=== PATIENT | male | born 1940 | race African-American/Black ===

== ENCOUNTER → 2019-10-19 | Outpatient (CLI) | payer OTHER, MEDICARE | LOC: SJCVC 15:46 | DX: I10 Essential (primary) hypertension (principal); R06.02 Shortness of breath; R09.89 Other specified symptoms and signs involving the circulatory and respiratory systems; R93.1 Abnormal findings on diagnostic imaging of heart and coronary circulation; Z87.891 Personal history of nicotine dependence; Z79.899 Other long term (current) drug therapy ==

== ENCOUNTER → 2019-12-09 | Outpatient (CLI) | payer OTHER, MEDICARE | LOC: SJCVCIMAG 09:33 | DX: I36.1 Nonrheumatic tricuspid (valve) insufficiency (principal); I65.23 Occlusion and stenosis of bilateral carotid arteries; I11.9 Hypertensive heart disease without heart failure ==

== ENCOUNTER → 2019-12-12 | Outpatient (CLI) | payer OTHER, MEDICARE | LOC: SJCVC 10:03 | DX: I10 Essential (primary) hypertension (principal); I65.23 Occlusion and stenosis of bilateral carotid arteries; E78.00 Pure hypercholesterolemia, unspecified; R60.9 Edema, unspecified; Z87.891 Personal history of nicotine dependence; Z72.89 Other problems related to lifestyle; Z79.899 Other long term (current) drug therapy ==

== ENCOUNTER → 2020-07-18 | Outpatient (CLI) | payer OTHER, MEDICARE | LOC: SJCVC 10:32 | PROVIDERS: ATTEND Internal Medicine Cardiovascular Disease | DX: I10 Essential (primary) hypertension (principal); E78.00 Pure hypercholesterolemia, unspecified; R93.1 Abnormal findings on diagnostic imaging of heart and coronary circulation; R60.9 Edema, unspecified; I77.9 Disorder of arteries and arterioles, unspecified; E78.5 Hyperlipidemia, unspecified ==

== ENCOUNTER → 2020-12-12 | Outpatient (CLI) | payer OTHER, MEDICARE ==
[~2020-12-12] VITALS: Ht 177.8 cm; Wt 90.7 kg
[~2020-12-12] MED LIST: ADULT ASPIRIN R81 MG PO; ALLEGRA ALLERGY60 MG PO; AMBIEN 10 MG TA10 MG PO; EDARBI80 MG PO; HUMALOG MI100 UNIT/1 SUBQ; LASIX 40 MG TAB40 MG PO; MELOXICAM15 MG PO; NEURONTIN300 MG PO; NORVASC5 M1 PO; PERCOCET 5-3251 EACH PO; SUPER THERAVIT1 EACH PO; TRAMADOL 50 MG50 MG PO; ZANAFLEX4 M1 PO; ZOCOR 20 MG TAB20 M1 PO; ZOLPIDEM TARTRA10 MG PO
[2020-12-12 13:08] VITALS: BP 168/71
--- NOTE | 2020-12-12 13:28 | NUR ---
Pain Clinic Assessment: 1. History of Osteoarthritis: RIGHT HIP History of Rheumatoid Arthritis: Not Applicable 2. Height: 5 ft. 10 in. 177.8 cm. Weight: 200.0 lb. oz. 90.720 kg. Patient's BMI: 28.7 3. Vital Signs: BP: 168/71 Pulse: 62 Resp: 16 Temp: 02 Sat: 100 ECG Mon: 4. Pain Intensity: 8 TO 10 5. Fall Risk: Dizziness: N Needs help standing or walking: N Fallen in the last 3 months: N Fall risk comments: 6. Patient on Blood Thinner: None 7. History of Hypertension: Y 8. Opioid Therapy greater than 6 weeks: N Opiate Contract Signed: 9. Risk Assessment Tool Provided: LOW-0 10. Functional Assessment Tool: 57/ 11. Recreational Drug Use: Never Drug Type: Tobacco Use: Former Smoker Tobacco Type: Amount or Packs/day: How Many Years: Alcohol Use: Yes Frequency: Special Occasions Quant: 2
== END ==
LOC: PAIN 10:08
PROVIDERS: ATTEND Anesthesiology Pain Medicine
DX: M54.5 Low back pain (principal)

== ENCOUNTER → 2021-01-09 | Outpatient (CLI) | payer OTHER, MEDICARE ==
[~2021-01-09] VITALS: Ht 177.8 cm; Wt 90.3 kg
[2021-01-09 10:32] VITALS: BP 134/88
--- NOTE | 2021-01-09 10:34 | NUR ---
Pain Clinic Assessment: 1. History of Osteoarthritis: RIGHT HIP History of Rheumatoid Arthritis: Not Applicable 2. Height: 5 ft. 10 in. 177.8 cm. Weight: 199.0 lb. oz. 90.266 kg. Patient's BMI: 28.6 3. Vital Signs: BP: 134/88 Pulse: 58 Resp: 16 Temp: 02 Sat: 99 ECG Mon: 4. Pain Intensity: 2 5. Fall Risk: Dizziness: N Needs help standing or walking: N Fallen in the last 3 months: N Fall risk comments: 6. Patient on Blood Thinner: None 7. History of Hypertension: Y 8. Opioid Therapy greater than 6 weeks: N Opiate Contract Signed: 9. Risk Assessment Tool Provided: LOW-0 10. Functional Assessment Tool: 57/70 11. Recreational Drug Use: Never Drug Type: Tobacco Use: Former Smoker Tobacco Type: Amount or Packs/day: How Many Years: Alcohol Use: Yes Frequency: Daily Quant: 2
--- NOTE | 2021-01-10 09:03 | HPC ---
[facility] [address] [place] [address] PAIN MANAGEMENT CONSULTATION Name: RAND QUINTERO [id number] Admission: 01/09/21 Attend Phys: Marcelle Valencia Discharge: Date of : 40 Report #: [id number] THIS REPORT FOR: cc: Carlotta Moulton MD, Karla L. MD Hocker,Marcelle YADAV ~ DATE OF SERVICE: 01/09/2021 CHIEF COMPLAINT: Lumbar radiculopathy and sciatic pain. HISTORY OF PRESENT ILLNESS: This is a very pleasant 80-year-old gentleman who returns to the pain clinic today for followup from his initial consultation. Today, the patient is rating his pain a 2/10, feels that the tramadol as well as a combination of gabapentin and tizanidine has been beneficial in decreasing his pain that he experiences in his low back that radiates down his right hip into his posterior thigh down to his foot. He describes it as a constant, aching with times of sharp, shooting pain. Overall, he believes the medication has been helpful in decreasing this pain. He reports becoming slightly "oozy sensation" when he took three tramadol a day and has now decreased that to 1 in the morning and 1 at night. He continues to take gabapentin twice a day and tizanidine up to 3 times a day. He denies any difficulty walking or "woozy sensation" with gabapentin or tizanidine. Today, he would like a refill of the tramadol. He is now having his primary care doctor write his gabapentin and tizanidine and he would also like to schedule a lumbar epidural steroid injection that Dr. Little discussed with him at his initial visit. The patient reports his second COVID vaccine was on 01/04/2021. He did not feel well the second day after the injection, now recovered. He is aware that he needs to schedule his epidural injection 2 weeks post-COVID vaccine. ALLERGIES: No known drug allergies. CURRENT LIST OF MEDICATIONS: Tizanidine 4 mg t.i.d., gabapentin 300 mg b.i.d., Tramadol 50 mg b.i.d., Percocet, Edarbi, Zocor, Palak, aspirin, Lasix, Norvasc, multivitamin, Humalog 70/25, Ambien p.r.n. and meloxicam. PQRS: 1. He has arthritic changes in his back as well as his right hip. Denies any rheumatoid arthritis. 2. Height is 5 feet 10 inches, weight is 199, BMI is 28. 3. Vital signs 134/88, pulse is 58, respirations 16, oxygen sat is 99. 4. Pain score is 2/10. 5. Denies dizziness, does not need help walking or standing, has not fallen in the last 3 months. 6. The patient is not on any blood thinners, but [place] [address] PAIN MANAGEMENT CONSULTATION Name: RAND QUINTERO Room #: REG [facility] Houser#: [id number] Admission: 01/09/21 Attend Phys: Marcelle Valencia Discharge: Date of : 40 Report #: [id number] 7. Opioid therapy is not greater than 6 weeks. 8. Risk assessment is low. Functional assessment is 57/70. 9. Recreational drug use, he denies. He is a former smoker and occasionally drinks alcohol. According to the prescription monitoring system, he did fill our tramadol as well as oxycodone and is due to fill those again this week. He reports not taking any oxycodone thankfully, it was not needed. PHYSICAL EXAMINATION: GENERAL: This is alert and orientated, well-developed, well-nourished 80-year-old gentleman who appears his stated age, rating his pain score today at 2/10. He is a good historian. HEENT: Normocephalic, atraumatic. Extraocular eye muscles are intact. Sclerae are nonintrinsic. He is wearing a mask. NECK: Without adenopathy or JVD. MUSCULOSKELETAL: The patient's upper and lower extremity strength are symmetrical at 5/5 with good sensation from L1 to S2. He does have pain that radiates from the lumbosacral region down the right buttock down the posterior portion of his right thigh into his L5-S1 dermatomal distribution to his ankle. The patient is without significant scoliosis, kyphosis or lordosis. IMPRESSION: 1. Lumbar radiculopathy following the L5-S1 dermatomal distribution. 2. Opioid medication management utilizing scheduled medications. 3. Neuropathic pain. PLAN: 1. We discussed treatment options with the patient today. The patient finds the tramadol beneficial in helping control his pain. He would like to continue on this medication until he is able to have a lumbar epidural steroid injection. Though this medication regimen that we have prescribed for him with adjunct medication has been beneficial, he would like to attempt to have the epidural to see if that will decrease his pain requiring him to have less medications. We will schedule him for injection on 01/23/2021, 2 weeks post-COVID vaccine with Dr. Little. 2. The patient was able to attend his granddaughter's wedding without difficulty. He did not require any oxycodone and has that locked up in a safe place and found the tramadol [address] Zack Little will send electronically a refill of that medication today for 60 tablets. He will discuss any further refills at his injection appointment in [address] Moulton has taken over writing the gabapentin and tizanidine. I did encourage the patient to take the lowest most effective dose of his tizanidine, it may cause slight dizziness, which he did complain of oozy sensation, he related it to the tramadol, it could be from the tizanidine or gabapentin. The patient verbalizes understanding. He will try to decrease [facility] [address] [place] [address] PAIN MANAGEMENT CONSULTATION Name: RAND QUINTERO [facility]: [facility]ott.#: [id number] Admission: 01/09/21 Attend Phys: Marcelle Valencia Discharge: Date of : 40 Report #: [id number] that if he is able without causing increase in muscle spasms. Time spent with the patient in consultation, reviewing clinical notes and physician reports as well as physical examination in correlation of findings, 15 minutes. Time spent in preparation for appointment reviewing prescription monitoring system reviewed previous records and treatment options and reviewing current medications, 5 minutes. Time spent in preparation and sending electronic prescriptions with collaborating physician and documentation of visit and plan of care, 9 minutes. Total time spent 27 minutes. <ELECTRONICALLY SIGNED> By: Marcelle Valencia 01/10/21 [id number] Marcelle oneill
== END ==
LOC: PAIN 06:54
PROVIDERS: ATTEND Clinical Nurse Specialist Adult Health
DX: M54.16 Radiculopathy, lumbar region (principal); G62.9 Polyneuropathy, unspecified; F11.20 Opioid dependence, uncomplicated; M54.30 Sciatica, unspecified side

== ENCOUNTER → 2021-01-23 | Outpatient (CLI) | payer OTHER, MEDICARE ==
[~2021-01-23] VITALS: Ht 177.8 cm; Wt 91.4 kg
[~2021-01-23] MED LIST changes: +MEDROLDOSEPACK PO
[2021-01-23 12:42] VITALS: BP 158/74
--- NOTE | 2021-01-23 12:47 | NUR ---
Pain Clinic Assessment: 1. History of Osteoarthritis: RIGHT HIP History of Rheumatoid Arthritis: Not Applicable 2. Height: 5 ft. 10 in. 177.8 cm. Weight: 201.4 lb. oz. 91.355 kg. Patient's BMI: 28.9 3. Vital Signs: BP: 158/74 Pulse: 64 Resp: 16 Temp: 02 Sat: 100 ECG Mon: 4. Pain Intensity: 1 5. Fall Risk: Dizziness: N Needs help standing or walking: N Fallen in the last 3 months: N Fall risk comments: 6. Patient on Blood Thinner: None 7. History of Hypertension: Y 8. Opioid Therapy greater than 6 weeks: N Opiate Contract Signed: 9. Risk Assessment Tool Provided: LOW-0 10. Functional Assessment Tool: 57/70 11. Recreational Drug Use: Never Drug Type: Tobacco Use: Former Smoker Tobacco Type: Amount or Packs/day: How Many Years: Alcohol Use: Yes Frequency: Daily Quant: 2
== END ==
LOC: PAIN 09:42
PROVIDERS: ATTEND Anesthesiology Pain Medicine
DX: M54.16 Radiculopathy, lumbar region (principal); M54.41 Lumbago with sciatica, right side; G62.9 Polyneuropathy, unspecified; I10 Essential (primary) hypertension; M16.11 Unilateral primary osteoarthritis, right hip; F11.20 Opioid dependence, uncomplicated

== ENCOUNTER → 2021-01-23 | Outpatient (CLI) | payer OTHER, MEDICARE | LOC: SJCVCIMAG | PROVIDERS: ATTEND Internal Medicine Cardiovascular Disease | DX: I07.1 Rheumatic tricuspid insufficiency (principal); I27.20 Pulmonary hypertension, unspecified; I11.9 Hypertensive heart disease without heart failure; R93.1 Abnormal findings on diagnostic imaging of heart and coronary circulation; E11.9 Type 2 diabetes mellitus without complications; E78.00 Pure hypercholesterolemia, unspecified; I77.9 Disorder of arteries and arterioles, unspecified; Z79.4 Long term (current) use of insulin; Z79.82 Long term (current) use of aspirin; Z79.899 Other long term (current) drug therapy; Z87.891 Personal history of nicotine dependence ==

== ENCOUNTER → 2021-11-06 | Outpatient (CLI) | payer OTHER, MEDICARE | LOC: SJCVC 13:03 | PROVIDERS: ATTEND Internal Medicine Cardiovascular Disease | DX: R93.1 Abnormal findings on diagnostic imaging of heart and coronary circulation (principal); I10 Essential (primary) hypertension; E78.00 Pure hypercholesterolemia, unspecified; Z72.89 Other problems related to lifestyle; Z87.891 Personal history of nicotine dependence; Z79.4 Long term (current) use of insulin; Z79.82 Long term (current) use of aspirin; Z79.899 Other long term (current) drug therapy ==

== ENCOUNTER → 2021-11-29 | Outpatient (CLI) | payer OTHER, MEDICARE | LOC: SJCVCIMAG 14:56 | PROVIDERS: ATTEND Internal Medicine Cardiovascular Disease | DX: I10 Essential (primary) hypertension (principal); E78.5 Hyperlipidemia, unspecified ==